=== PATIENT | male | born 1955 | race Caucasian/White ===

== ENCOUNTER 2025-04-26 09:46 | Outpatient (AMB) | payer MEDICARE, OTHER, SELFPAY ==
--- OUTSIDE RECORDS SUMMARY | 2025-04-26 09:55 | XMS_ITS | Clinical Summary ---
Author Organization [facility] Address [address] [place] [address] Care Team Providers Care Assembler Ping Pong Table Name Role Phone Unavailable Primary Care Provider Unavailabl e Allergies No known active allergies Medications * This document contains information received from the source organization and may not represent a complete record from that organization. Pantoprazole Sodium 20 MG Tablet Delayed Response 1 TABLET DAILY Active Pravastatin Sodium 10 MG Tab 1 TABLET AT BEDTIME Active Active Problems Problem Noted Date Diagnosed Date GERD (gastroesophageal reflux disease) 6 High cholesterol 12/22/2015 History of esophageal stricture 12/22/2015 Immunizations Immunization Administration Dates Next Due Hep B (adult) 08/23/1995,03/24/1995 Social History Tobacco Use Types Packs/Day Years Used Date Smoking Tobacco: Every Day Sex and Gender Information Value Date Recorded Sex Assigned at Not on file Legal Sex Male 7:14 PM EDT Gender Identity Not on file Sexual Orientation Not on file Last Filed Vital Signs Vital Sign Reading Time Taken Comments Blood Pressure 142/88 12/22/2015 1:14 PM EDT Pulse 80 12/22/2015 12:59 PM EDT Temperature - - Respiratory Rate - - Oxygen Saturation - - Inhaled Oxygen Concentration - - Weight 74.4 kg (164 lb) 12/22/2015 12:59 PM EDT Height 177.8 cm (5' 10 ) 12/22/2015 12:59 PM EDT Body Mass Index 23.53 12/22/2015 12:59 PM EDT Plan of Treatment Health Maintenance Due Date Last Done Comments Hepatitis C Screening 1955 DTaP/Tdap/Td (1 - Tdap) 1973 Hep B (3 of 3 - 19+ 3-dose series) 10/18/1995 08/23/1995, 03/24/1995 Pneumococcal 50+ years (1 of 1 - PCV) 2005 Zoster (Shingrix) (1 of 2) 2005 Abdominal Aorta Imaging 2020 COVID-19 Vaccine ( - 2023-2 5 season) 2024 Influenza (#1) 2025 RSV (1 - 1-dose 75+ series) 2030 HPV Vaccine (No Doses Required) Completed Hep A Aged Out No longer eligi ble based on patient's age to complete this topic Hib Aged Out No longer eligi ble based on patient's age to complete this topic Meningococcal ACWY Aged Out No longer eligible based on patient's age to complete this topic Zoster (Zostavax) Discontinued
--- OUTSIDE RECORDS SUMMARY | 2025-04-26 09:55 | XMS_ITS | Clinical Summary ---
Author Organization [facility] Address [address] [place], [place] [id number] Phone Care Team Providers Care Robot Technician Name Role Phone Brandon Orr MD Primary Care Provider [phone] Allergies No known active allergies Medications omeprazole (PRILOSEC) 10 MG capsule Take 10 mg by mouth daily. Active atorvastatin (LIPITOR) 10 MG tablet Take 10 mg by mouth daily. Active Active Problems No known active problems Social History Tobacco Use Types Packs/Day Years Used Date Smoking Tobacco: Never Assessed Education Answer Date Recorded Are you interested in more education? Not on hawk e 01/29/2023 Are you concerned about learning? Not on file 01/29/2023 No 01/29/2023 No 01/29/2023 Digital Access Answer Date Recorded No 02/20/2023 No 02/20/2023 Reliable internet access at home? Not on file 02/20/2023 Device with a working camera? Not on file Sex and Gender Information Value Date Recorded Sex Assigned at Not on file Legal Sex Male 5:35 PM EST Gender Identity Not on file Sexual Orientation Not on file Last Filed Vital Signs Vital Sign Reading Time Taken Comments Blood Pressure - - Pulse - - Temperature - - Respiratory Rate - - Oxygen Saturation - - Inhaled Oxygen Concentration - - Weight 73.9 kg (163 lb) 09/01/2020 1:56 PM EST Height 177.8 cm (5' 10 ) 09/01/2020 1:56 PM EST Body Mass Index 23.39 09/01/2020 1:56 PM EST Plan of Treatment Health Maintenance Due Date Last Done Comments Adult Td,Tdap Booster 1955 LIPID PANEL 1955 DEPRESSION SCREENING 1967 SMOKING Hx and SMOKELESS TOBACCO SCREENING 1968 HEPATITIS C SCREENING 1973 COLOGUARD 2000 COLONOSCOPY 2000 COLORECTAL CANCER SCREENING 2000 FIT TEST 2000 FOBT 2000 SIGMOIDOSCOPY 2000 VIRTUAL COLONOSCOPY 2000 ZOSTER VACCINES (1 of 2) 2005 PNEUMOCOCCAL VACCINES (50+ years) (2 of 2 - PCV) 07/23/2021 07/23/2020 COVID-19 VACCINE (3 - 2023-2 5 season) 2024 11/05/2020, 10/15/2020 RSV VACCINE (1 - 1-dose 75+ series) 2030 HEPATITIS A VACCINES Aged Out No long er eligible based on patient's age to complete this topic HIB VACCINES Aged Out No longer eligi ble based on patient's age to complete this topic MENINGOCOCCAL VACCINES (ACWY) Aged Out No longer eligible based on patient's age to complete this topic MENINGOCOCCAL VACCINES (B) Aged Out N o longer eligible based on patient's age to complete this topic Medical Devices Not on file Insurance [employer] SUPPLEMENT [employer] SUPPLEMENT [employer] SUPPLEMENT [employer]LEMENT [employer] SU[employer]LEMENT Care Teams Robot Technician Relationship Specialty Start Date End Date Brandon Orr MD [address] [place] [id number] PCP - General 08/11/20 Additional Source Comments The information contained in this document represents components of the legal health record. It is not the complete legal health record.[facility]
--- OUTSIDE RECORDS SUMMARY | 2025-04-26 09:55 | XMS_ITS | Encounter Summary ---
Author Organization [facility] Address [address] [place] [address] Care Team Providers Care Diagrammer And Seamer Name Role Phone Brandon Orr MD Primary Care Provider [phone] Encounter Details Date Type Department Care Team (Late st Contact Info) Description 04/17/2025 Telephone [facility] [address] [place] [phone] Sophia Lucero, YOGESH Social History Tobacco Use Types Packs/Day Years Used Date Smoking Tobacco: Former Cigarettes 1 30 0 06/15/1987 - 06/15/2017 Smokeless Tobacco: Never Comments:smoked 40 years x < 1 ppd; quit few years ago Alcohol Use Standard Drinks/Week Comments Yes 0 (1 standard drink = 0.6 oz pur e alcohol) Every other week; once [facility] Utilities Answer Date Recorded In the past 12 months has [employer], gas, oil, or water [employer] threatened to shut off services in your home? No 01/30/2025 Hunger Vital Sign Answer Date Recorded Within the past 12 months, y ou worried that your food would run out before you got the money to buy more. Never true 01/31/20 25 Within the past 12 months, t he food you bought just didn't last and you didn't have money to get more. Never true 01/30/2025 Transportation Answer Date Recorded In the past 12 months, has l ack of reliable transportation kept you from medical appointments, meetings, work or from getting things needed for daily living? No 01/30/2025 Housing Answer Date Recorded Housing Risk Low 2 01/30/2025 Housing Risk Medium Not on file 01/30/2025 Housing Risk High Not on file 01/30/2025 What is your living situation today? [facility] 01/30/2025 Sex and Gender Information Value Date Recorded Sex Assigned at Male 10/03/2022 12:53 PM EST Legal Sex Male 1:48 AM EDT Gender Identity Male 10/03/2022 12:53 PM EST Sexual Orientation Choose not to disclose 2022 12:53 PM EST Occupation Industry Job Start Date Job End Date [employer] Not on file Not on file Not on file documented as of this encounter Plan of Treatment Upcoming Encounters Date Type Department Care Team (Late st Contact Info) Description 06/10/2025 11:15 AM EDT Follow-Up [facility] [address] [place] [phone] Jordin Traore MD [address] [place] [phone] 07/11/2025 10:15 AM EDT Office Visit [facility] General Surgery [address] [place] [phone] Steve Mancini MD [address] [place] [phone] 02/10/2026 9:30 AM EDT Follow-Up [facility] 4th floor Cardiology Medicine [address] [place] [phone] Health Equipment Servicer: Ian Silvestre MD [address] [place] [address] Cardiovascular Medicine [place], [place] [phone] Scheduled Procedures Name Priority Associated Diagnoses Date/Ti me UPPER ENDOSCOPY; DIAGNOSTIC WITH BRUSH/WASH (SP) WITH POSSIBLE MODERATE SEDATION Dysphagia, unspecified type documented as of this encounter Goals Goal Patient Goal Type Associated Problems Recent Progress Patient-Stated? Author Autogenerat ed Goal Care Plan Autogenerated Problem No Nam Morris MD Autogenerat ed Goal Care Plan Autogenerated Problem No Nam Morris MD Autogenerat ed Goal Care Plan Autogenerated Problem No Nam Morris MD documented as of this encounter Visit Diagnoses Not on filedocumented in this encounter Additional Health Concerns Active Problems Noted Date Diagnosed Date Autogenerated Problem 02/04/2025 Autogenerated Problem 02/21/2025 Autogenerated Problem 04/17/2025 documented as of this encounter Care Teams Diagrammer And Seamer Relationship Specialty Start Date End Date Brandon Orr MD [address] [place] [id number] PCP - General Family Medicine 04/14/17 documented as of this encounter
[2025-04-26 10:31] VITALS: BMI 23.7
--- NOTE | 2025-04-26 10:31 | HO.SPINEOV ---
Vital Signs 04/26/25 10:31 Height 5 ft 9.5 in Weight 163 lb BMI 23.7 Intake Visit Reasons: spinal stenosis Intake Note: Mr. Vallejo is here today c/o low back pain. 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 HPI: This 69-year-old male is suffering from severe right-sided neck pain that started approximately a year ago but became much more pronounced in the last 6 months. In addition, he has numbness and fussiness of the right side of his face. He denies radiating pain down his arm or shoulder blade. The left side is unaffected. He can not lay on his left side causing severe right-sided pain in his neck. He is taking [id number] medications which are not helpful. He is also doing a physician guided home exercise plan with stretching which is not alleviating the pain. 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 Spurling test produces pain on the right side of his neck. No motor or sensory deficits. No pathological reflexes. Radiological Studies: MRI done at [facility] on 03/09/2025 shows multilevel degenerative disc disease of the cervical spine. There is severe bilateral C5 foraminal stenosis and moderate C6 foraminal stenosis. Impression/Plan: This patient is suffering from right-sided neck pain, most likely radicular in nature. It could be related to the severe C5 foraminal stenosis. I would like to refer him for a cervical epidural steroid injection 1st before we consider a C5 foraminotomy. I will refer him to at [facility]. The patient will call me to discuss the results and further plan. Thank you for allowing me to participate in your patients care. total time spent was 50 minutes in counseling ,coordination of plan, personal review of imaging, surgical decision making and subsequent plan Son King MD, PhD Spine Fellowship Trained Neurosurgeon Director, [facility] Orders: Referrals Pain Management Referral M54.12 - Radiculopathy, cervical region Coding Level of Care Code New Pt Level 4 (90648) Diagnoses Cervical radiculopathy M54.12
== END 2025-04-26 11:54 | disposition home or self-care (01) ==
LOC: HO.HNS 09:47
PROVIDERS: PCP Family Medicine; Referring Provider Family Medicine; Visit Provider Neurological Surgery
DX: M54.12 Radiculopathy, cervical region (principal)
CPT/HCPCS: 99204

== ENCOUNTER → 2025-04-26 09:46 | Outpatient (BNVA) | payer MEDICARE, OTHER, SELFPAY | PROVIDERS: PCP Family Medicine; Referring Provider Family Medicine; Visit Provider Neurological Surgery | DX: M54.12 Radiculopathy, cervical region (principal) | CPT/HCPCS: 99202 ==